=== PATIENT | female | born 1980 | race Caucasian/White ===

== ENCOUNTER 2021-05-03 19:46 | Emergency (ER) | payer OTHER ==
[~2021-05-03] VITALS: Ht 167.6 cm; Wt 65.7 kg
[2021-05-03] MEDS ORDERED: VENTOLIN HFA18 GM INH (20:16)
[2021-05-03] MEDS ORDERED: KEPPRA500 MG PO (20:57)
== END 2021-05-03 21:25 | disposition home or self-care (01) ==
LOC: ED 19:46
DX: R56.9 Unspecified convulsions (principal); S09.90XA Unspecified injury of head, initial encounter; Z88.8 Allergy status to other drugs, medicaments and biological substances; X58.XXXA Exposure to other specified factors, initial encounter
CPT/HCPCS: 36415; 70450; 80053; 84703; 85025; 96374; 99285-25; J1953